=== PATIENT | male | born 1970 ===

== ENCOUNTER 2020-04-18 17:23 | Emergency (ER) | payer OTHER ==
[~2020-04-18] VITALS: Ht 172.7 cm; Wt 77.2 kg
[2020-04-18 17:30] VITALS: BP 123/77
== END 2020-04-18 18:01 | disposition home or self-care (01) ==
LOC: ER 17:24
DX: Z00.8 Encounter for other general examination (principal); Z72.89 Other problems related to lifestyle
CPT/HCPCS: 99283